=== PATIENT | female | born 2000 | race Two or more races ===

== ENCOUNTER 2019-12-05 11:08 | Outpatient (CLI) | payer OTHER ==
[~2019-12-05] VITALS: Ht 167.6 cm; Wt 79.4 kg
== END 2019-12-05 16:28 | disposition home or self-care (01) ==
LOC: OFIC 805 11:08
PROVIDERS: ATTEND Otolaryngology
DX: J03.80 Acute tonsillitis due to other specified organisms (principal); H61.23 Impacted cerumen, bilateral; H93.8X3 Other specified disorders of ear, bilateral

== ENCOUNTER → 2020-08-24 | Outpatient (CLI) | payer OTHER | END | disposition home or self-care (01) | LOC: PPH VACUNA | DX: Z23 Encounter for immunization (principal) ==